=== PATIENT | male | born 1950 | race Caucasian/White ===

== ENCOUNTER 2020-12-29 07:31 | Inpatient (IN) ==
[~2020-12-29 07:31] MED LIST: Buffered Lidocaine 1% SYRIN 1 ml INTRADERM ONE; Lactated Ringers 1000 ml BAG 1,000 ML IV SCH
[2020-12-29] MEDS ORDERED: Buffered Lidocaine 1% SYRIN 1 ml INTRADERM ONE (08:00)
[2020-12-29] MEDS ORDERED: fentaNYL 100 mcg/2 ml 50 MCG/ML VIAL ONE ×2 (08:01→13:36)
[2020-12-29] MEDS ORDERED: Midazolam 2 mg/2 ml VIAL 1 mg/ml 2 ml VIAL (2 mg) ONE (08:01)
[2020-12-29] MEDS ORDERED: Dexmedetomidine 200 mcg/2 ml 2 ml VIAL (200 mcg) ONE (08:11)
[2020-12-29] MEDS ORDERED: Lidocaine 2% PF 5 ML VIAL ONE (08:14)
[2020-12-29] MEDS ORDERED: Dexamethasone IV 4 MG/ML VIAL 1 ml VIAL ONE (08:15)
[2020-12-29] MEDS ORDERED: Ondansetron 4 mg VIAL 2 MG/ML 2 ml VIAL ONE (08:15)
[2020-12-29] MEDS ORDERED: ceFAZolin 2 GM in NS PREMIX 2 GM/100 ML BAG IVPB ONE (08:29)
[2020-12-29] MEDS ORDERED: DiMENhydriNATE IV 50 mg/ml 1 ml VIAL IV PUSH PRN (09:01)
[2020-12-29] MEDS ORDERED: Naloxone 0.4 mg VIAL 0.4 mg/ml 1 ml VIAL IV PRN (09:01)
[2020-12-29] MEDS ORDERED: oxyCODONE/Acetamin 5/325 mg TAB PO PRN (09:01)
[2020-12-29] MEDS ORDERED: Ondansetron 4 mg VIAL 2 MG/ML 2 ml VIAL IV PRN ×2 (09:01→10:55)
[2020-12-29] MEDS ORDERED: Propofol 10 mg/ml 100 ML BTL 100 ML ONE (09:25)
[2020-12-29] MEDS ORDERED: Phenylephrine IV 10 MG/ML 1 ml VIAL ONE (09:29)
[2020-12-29] MEDS ORDERED: EPHEDrine (Pressors) 50 MG/ML VIAL ONE (10:46)
[2020-12-29] MEDS ORDERED: Ondansetron ODT 4 mg TAB 4 MG TAB PO PRN (10:55)
[2020-12-29] MEDS ORDERED: diPHENhydraMINE 25 mg TAB PO PRN (10:55)
[2020-12-29] MEDS ORDERED: Magnesium Hydroxide LIQ 30 ML UDC PO PRN (10:55)
[2020-12-29] MEDS ORDERED: Morphine 2 MG/ML SYRINGE IV PRN (10:55)
[2020-12-29] MEDS ORDERED: diPHENhydraMINE IV 50 MG/ML 1 ml VIAL (BENADRYL) IV PRN (10:55)
[2020-12-29] MEDS ORDERED: Lactulose 30 ml UDC PO PRN (10:55)
[2020-12-29] MEDS: fentaNYL 100 mcg/2 ml 50 MCG/ML VIAL IV PRN ×2 (13:37→13:52)
[2020-12-29] MEDS ORDERED: oxyCODONE/Acetamin 5/325 mg TAB ONE (13:37)
[2020-12-29] MEDS: Lactated Ringers 1000 ml BAG 1,000 ML IV SCH (15:33)
[2020-12-29] MEDS: ceFAZolin 1 GM ADVAN 1 GM in NS 0.9% 50 ML 50 ML IVPB SCH ×3 (15:45→17:44)
[2020-12-29] MEDS ORDERED: Dextrose 50% Syringe 50 ml 25 GM/50 ML SYRINGE IV PUSH PRN (16:47)
[2020-12-29] MEDS: Magnesium Hydroxide LIQ 30 ML UDC PO SCH (21:55)
[2020-12-30] MEDS: Lactated Ringers 1000 ml BAG 1,000 ML IV SCH ×3 (00:28→21:19)
[2020-12-30] MEDS: ceFAZolin 1 GM ADVAN 1 GM in NS 0.9% 50 ML 50 ML IVPB SCH ×2 (02:21→10:15)
[2020-12-30 05:59] LABS: Hematocrit 33 % (42-52); Hemoglobin 11.2 g/dL (14.0-18.0); Mean Platelet Volume 7.6 fL (7.4-10.4); Platelet Count 247 10^3/uL (150-450)
[2020-12-30 06:38] LABS: Calcium 9.1 mg/dL (8.6-10.3); EGFR African American 66.2 (>60); EGFR Non-African American 54.7 (>60); Potassium 4.1 mmol/L (3.5-5.0)
[2020-12-30] MEDS: Magnesium Hydroxide LIQ 30 ML UDC PO SCH ×2 (08:05→21:37)
[2020-12-30] MEDS: Vitamin THERAPEUTIC TAB PO SCH (08:05)
[2020-12-30] MEDS ORDERED: NS 0.9% 500 ml BAG 500 ML IV ONE (09:28)
[2020-12-30] MEDS ORDERED: NS 0.9% 1000 ml BAG 1,000 ML IV SCH (12:45)
[2020-12-30] MEDS ORDERED: NS 0.9% 1000 ml BAG 1,000 ML IV ONE (15:59)
[2020-12-31 07:20] LABS: Hematocrit 28 % (42-52); Hemoglobin 9.8 g/dL (14.0-18.0); Mean Platelet Volume 7.7 fL (7.4-10.4); Platelet Count 220 10^3/uL (150-450)
[2020-12-31 07:30] LABS: EGFR African American 61.3 (>60); EGFR Non-African American 50.7 (>60); Potassium 4.1 mmol/L (3.5-5.0)
[2020-12-31] MEDS: Lactated Ringers 1000 ml BAG 1,000 ML IV SCH (07:42)
[2020-12-31 07:54] VITALS: BP 117/60
[2020-12-31] MEDS: Vitamin THERAPEUTIC TAB PO SCH (08:46)
[2020-12-31] MEDS: Magnesium Hydroxide LIQ 30 ML UDC PO SCH (08:46)
== END 2020-12-31 11:30 | disposition home or self-care (01) | DRG 470 ==
LOC: INTOOBSV 07:31 → AA 07:31 → SSU 15:40
PROVIDERS: ADMIT Orthopaedic Surgery Adult Reconstructive Orthopaedic Surgery; ATTEND Orthopaedic Surgery Adult Reconstructive Orthopaedic Surgery